=== PATIENT | female | born 1980 | race Caucasian/White ===

== ENCOUNTER 2022-10-26 11:00 | Outpatient (CLI) | payer MEDICAID, SELFPAY ==
[2022-10-26 22:39] LABS: Cholesterol* 156 mg/dL (90-199)
[2022-10-26 22:40] LABS: Glucose* 88 mg/dL (60-115); HDL Cholesterol* 47 mg/dL (>=50); LDL Cholesterol Calculated 94 mg/dL (<100); Triglycerides* 77 mg/dL (40-149)
[2022-10-29 20:43] LABS: Prolactin 4.1 ng/mL (2.8-29.2)
== END 2022-10-26 11:01 | disposition home or self-care (01) ==
PROVIDERS: PCP Physician Assistant Medical; Visit Provider Physician Assistant
DX: Z01.419 Encounter for gynecological examination (general) (routine) without abnormal findings (principal); N92.0 Excessive and frequent menstruation with regular cycle; N94.6 Dysmenorrhea, unspecified; N64.52 Nipple discharge; Z13.6 Encounter for screening for cardiovascular disorders; Z13.1 Encounter for screening for diabetes mellitus
CPT/HCPCS: 80061; 82947; 84146; 84443

== ENCOUNTER 2022-12-03 12:01 | Outpatient (CLI) | payer MEDICAID, SELFPAY ==
--- NOTE | 2022-12-03 12:15 | CRLHL7_ITS ---
For Patients: As a result of the Century Cures Act, medical imaging exams and procedure reports are released immediately into your electronic medical record. You may view this report before your referring provider. If you have questions, please contact your health care provider. INDICATION: Heavy and painful menses. TECHNIQUE: Transabdominal and transvaginal pelvic ultrasound. COMPARISON: March 14, 2019. FINDINGS: The uterus measures 10.7 x 5.0 x 6.2 cm. The endometrial stripe is thickened and heterogeneous measuring 16 mm. There is some increased vascularity within the mid and upper endometrial canal, and therefore polyps or hyperplasia are in the differential. Endometrial carcinoma could not be entirely excluded. Gynecologic evaluation is warranted. Hysterosonography or hysteroscopy may be helpful. No definite myometrial mass. Thickening of the endocervical canal. Cervical nabothian cysts. Normal-sized ovaries containing small follicles. The right ovary measures 2.9 x 2.1 x 2.0 cm. The left ovary measures 3.6 x 2.4 x 2.9 cm. Blood flow is documented in the ovaries. IMPRESSION: 1. Heterogeneous appearance to the endometrial with endometrial thickening measuring up to 16 mm with some increased vascularity. Polyps or hyperplasia are in the differential. Further imaging evaluation possibly with hysterosonography or hysteroscopy may be helpful. Gynecologic evaluation is warranted. 2. Probable endometrial thickening in the region of the endocervical canal. 3. Normal ovaries. Dictated by Truman Toscano MD @ 12/03/2022 3:47:37 PM (Electronically Signed)
== END 2022-12-03 12:02 | disposition home or self-care (01) ==
LOC: US 12:02
PROVIDERS: PCP Physician Assistant Medical; Visit Provider Physician Assistant
DX: N92.0 Excessive and frequent menstruation with regular cycle (principal); R93.89 Abnormal findings on diagnostic imaging of other specified body structures; N94.6 Dysmenorrhea, unspecified
CPT/HCPCS: 76830; 76856

== ENCOUNTER 2023-03-04 09:33 | Day surgery (SDC) | payer MEDICAID, SELFPAY ==
[2023-03-04] VITALS (20 sets, daily range): BP systolic 96–121; BP diastolic 54–89; PULSE 80–97; RESP 10–18; TEMP 36.1–36.9; O2SAT 95–100; BMI 26.5
[2023-03-04] MEDS: LACTATED RINGERS 1000 ML 1,000 ML 100 ML IV ×2 (09:45→13:52)
[2023-03-04 09:52] LABS: Ur HCG Qualitative* Negative (Negative)
[2023-03-04] MEDS: SODIUM CHLORIDE 0.9 % (FLUSH) 10 ML SYRINGE IVF (10:04)
--- NOTE | 2023-03-04 11:36 | W.ANESCHARGE ---
Anesthesia Charges Start Date/Time Anesthesia Start Date: 03/04/23 Anesthesia Start Time: 13:21 Stop Date/Time Anesthesia Stop Date: 03/04/23 Anesthesia Stop Time: 18:47
--- NOTE | 2023-03-04 13:06 | PM.PROC ---
Procedure Note Time Seen by Provider: 17:17 Date Seen: 03/04/23 Date of procedure: 03/04/23 Will [facility] bill your pro fee for this procedure?: Yes Procedure: Preoperative diagnosis: 42-year-old 2 para 1011 Menorrhagia with secondary anemia Dysmenorrhea Postoperative diagnosis: Same Procedure: Total laparoscopic hysterectomy, bilateral salpingectomy, diagnostic cystoscopy. Anesthesia: General endotracheal, local Surgeon: Latoya Jurado MD Poultry Hatchery Manager: Deanne Garcia MD Dictating Machine Mechanic surgeon: Maritza Botello MD Estimated blood loss: 400 mL. IV Fluid: 3,000 mL LR, 1u pRBC's Urine output: 150 mL, clear urine at the end of the procedure Drains: Mulligan to gravity Specimen: Uterus and bilateral fallopian tubes to pathology. Findings: On exam under anesthesia: The uterus was mid position, approximately 9 week size, mobile without nodularity or masses palpable. Uterus sounded to 11 cm. Adnexa without mass or fullness palpable. On laparoscopy: Normal ovaries bilaterally, both with ovulatory cysts. There was noted to be a hematoma in the right retroperitoneal space once the uterus was removed and placed in the vaginal canal to maintain insufflation. On inspection there was noted be a rent in the peritoneum of the roof retroperitoneal space suspicious for an injury that took place at the time infraumbilical trocar placement. General surgery was consulted and the patient's bowel ran to assess for possible small bowel injury. There was noted to be a through-through laceration in the mesentery of the small bowel without bleeding. An intraoperative CBC was ordered stat and hemoglobin returned at 7.8. Preoperative hemoglobin 10.6. This point she was type and crossed for 2 units of packed red blood cells. Coag studies were ordered to be done in the recovery room. Intraoperative platelet count 185K. Appendix and liver appeared normal. Procedure: Jovon was taken to the operating room where general anesthetic was found to be adequate. She was placed in the dorsal lithotomy position and an exam under anesthesia was performed with findings stated above. She was then prepped and draped in a normal sterile manner. A Mulligan catheter was placed. A bivalve speculum was placed in the vaginal canal. A long Allis clamp was placed on the anterior lip of the cervix, in the uterus sounded to 11 cm. An extra-large VCare uterine manipulator was then placed. The Allis clamp and speculum were removed from the cervix. Attention was then turned to performing the laparoscopic portion of the procedure. All incisions were infiltrated with 0.50% Marcaine prior to incising the skin. A vertical, infraumbilical 1 cm incision was made. An 11 mm trocar was then placed under direct visualization. The abdomen was then insufflated with CO2 gas to a pressure of 15 mm of mercury. Two,, pelvic ports were then placed approximately 3-4 finger breaths medial to the ischial crests. The trocar in the RLQ = 5mm, LLQ = 11mm. These were placed under direct visualization. With attempting to place the infraumbilical trocar was noted that the patient's fascia was very scarred from her previous laparoscopic cholecystectomy which required a significant amount of pressure to place the trocar. Inspection of the omentum directly below the trocar noted some small blood clots but no active bleeding. Attention was then turned to performing the hysterectomy. Both ureters were visualized in the normal position bilaterally. The left fallopian tube was grasped and removed with sequential pedicles using the dissecting, PowerSeal blunt tip dissecting forceps. The left side of the hysterectomy was performed using the PowerSeal dissecting forceps. The 1st pedicles were starting with the broad ligament that was cauterized and and bisected. In sequence show pedicles were formed to divide the utero-ovarian ligament. Then sequential pedicles were made through the broad ligament. The posterior leaf of the broad ligament was then divided and sequential pedicles carried down to the level of the VCare cup. The anterior leaf of the broad ligament was then divided down to the level of the anterior aspect of the VCare cup and a bladder flap created. The uterine vessels were then skeletonized. The uterine vessels were then cauterized and divided. Then excess tissue was cleared over the top of the VCare cup using the dissecting forceps. The right salpingectomy and right side of the hysterectomy were then performed in a similar manner. The Ligasure Sky Frequency pen with the spatula attachment was then used to perform the colpotomy incising around the VCare cup. The uterus was removed and the fundus placed in the vaginal canal to maintain insufflation. At this point the right retroperitoneal hematoma was identified it did not appear to be enlarging. There was a small rent within the peritoneum overlying the right retroperitoneal space right of midline. No active bleeding was identified. Two small pieces of Surgicel were placed with in the peritoneal rent. The CO2 gas pressure was decreased to a pressure of 5 mmHg and no increase in bleeding was identified. The vaginal cuff was then reapproximated using 2-0 V lock suture in a running manner. All the pedicles and vaginal cuff were then closely visualized and hemostasis obtained with bipolar cautery using the PowerSeal dissecting forceps or the [employer] Recordslab pen with the spatula. The the uterus was removed from the vaginal canal and sent to pathology. The Mulligan catheter was briefly removed. A diagnostic cystoscopy was performed using normal saline as the insufflation medium. The dome of the bladder was noted to be without injury and no evidence of any sutures from the vaginal cuff causing injury. Normal urine flow was noted through both ureteral orifices. Fluorescein IV was used to visualize the urine more easily. The Mulligan catheter was then replaced. Please see Dr. Botello's operative report regarding her diagnostic laparoscopy to assess the small bowel for possible injury. An additional 5 mm trocar was placed in the patient's left upper quadrant direct visualization for her portion of the procedure. Attention was then returned to the abdomen where hemostasis was verified. The CO2 pressure decreased to 8mmHG and hemostasis verified. The fascia in the LLQ incision was approximated with 0-Vicryl suture using the Ramesh Thomasen fascial closure device. This was closed under direct visualization with the laparoscope. The fascia in the umbilical incision was reapproximated using 0 Vicryl on a UR 6 needle. All trocars were removed under direct visualization. CO2 gas was allowed to escape the infraumbilical port prior to its removal. All skin incisions were re-approximated using 4-0 Monocryl in a running subcuticular manner, Exofin skin adhesive gel and adhesive bandages placed. The patient tolerated this procedure well. Sponge, lap and instrument counts were correct x2 at the end of the procedure. The patient was transported to the radiology department for a CT scan while she was intubated to access for right internal epigastric blood vessel injury or evidence of injury to the right ureter. The patient received 2gm IV ancef prior to the start of the procedure. Anesthesia: GETA and local
[2023-03-04] MEDS: CEFAZOLIN 2 GM INJ IVP (13:40)
--- NOTE | 2023-03-04 13:40 | W.PM.NB ---
Nerve Block Nerve Block Time Seen by Provider: 13:37 Date Seen: 03/04/23 Type of block requested by surgeon for post-operative analgesia: TAP Side: bilateral Time out performed: Yes Verification of patient name: Yes Verification of date of : Yes Site marking: site marked Name of person performing procedure: Peter Continuous monitoring Was continuous monitoring of O2 sat, B/P, monitor car operator, recorded every 15 minutes?: Yes Procedure Checklist: sterile prep, needles and gloves Ultrasound guided. Images saved: Yes Medications given in 5ml increments after negative aspiration: Marcaine %: 0.25 mL: 30 Needle gauge: 20 and Exparel mL: 10 Patient tolerated procedure well: Yes Additional comments: Needle noted adjacent to nerve Block Charges Block Charge (with Pro Fee): TAP Bilateral Use of Ultrasound Machine for Block: Yes- US Guidance/pain block
[2023-03-04] MEDS: BUPIVACAINE 0.5% 30 ML INJECTION (14:00)
--- NOTE | 2023-03-04 15:35 | CRLHL7_ITS ---
For Patients: As a result of the Century Cures Act, medical imaging exams and procedure reports are released immediately into your electronic medical record. You may view this report before your referring provider. If you have questions, please contact your health care provider. INDICATION: Retroperitoneal bleed TECHNIQUE: CT abdomen and pelvis, multiphase, acquired with 80 cc Isovue 370 IV contrast. Permanently recorded images are archived. COMPARISON: None. FINDINGS: Lower chest: Bilateral lower lobe atelectasis versus consolidation. Liver: Unremarkable. Normal in size and attenuation. No suspicious masses. Gallbladder and bile ducts: Status post cholecystectomy. No abnormal biliary ductal dilatation. Pancreas: Unremarkable. No mass or inflammation. Spleen: Mild amount of perisplenic fluid. Normal in size. No masses. Adrenal glands: Unremarkable. No nodules. Kidneys, Ureters, and Bladder: Unremarkable. No suspicious masses, stones, or hydronephrosis. Unremarkable ureters. Decompressed bladder with indwelling urinary catheter. GI tract: Unremarkable. Normal in caliber. No sign of inflammation. The appendix is not visualized. Vasculature: Abdominal aorta is normal in caliber. Mesenteric arteries are patent. No evidence for active extravasation. Lymph nodes: No lymphadenopathy. Retroperitoneum/Peritoneum/Abdominal Wall: There is a small amount of retroperitoneal hemorrhage and air along the right psoas muscle that extends down the right pelvic sidewall. Postsurgical changes of recent hysterectomy with pneumoperitoneum and lower abdominal wall subcutaneous emphysema. Small amount of simple free fluid in the pelvic cul-de-sac. 2.1 cm mass in the right breast, series 4, image 5. Pelvis: Status post hysterectomy. Normal ovaries. Bones: Unremarkable for age. IMPRESSION: Postsurgical changes of recent hysterectomy. Small right-sided retroperitoneal hemorrhage and air extending along the psoas muscle down the right pelvic sidewall. No evidence for active extravasation. Intact ureters without evidence for urinary leak. Please note that all CT scans at this facility use dose modulation, iterative reconstruction, and/or weight-based dosing when appropriate to reduce radiation dose to as low as reasonably achievable. Dictated by Hung Nelson MD @ 03/04/2023 7:03:22 PM (Electronically Signed)
--- NOTE | 2023-03-04 16:15 | SUR.OPER ---
FAMILY NOTIFIED AT 9177
[2023-03-04 16:32] LABS: Red Blood Count 3.16 m/uL (4.00-5.20); White Blood Count* 10.35 K/uL (4.50-11.00)
[2023-03-04 16:33] LABS: Hematocrit 25.7 % (33.0-51.0); Hemoglobin* 7.8 gm/dL (12.0-16.0); Mean Corpuscular HGB Conc 30 gm/dL (32-36); Mean Corpuscular Hemoglobin 25 pg (26-34); Mean Corpuscular Volume 81 fL (80-100); Platelet Count* 185 K/uL (140-440)
[2023-03-04 16:40] LABS: Lymphocytes Percent Auto 8.9 % (20-44); Neutrophils Percent Auto 88.8 % (42.0-72.0)
[2023-03-04 16:41] LABS: Basophils Absolute Auto 0.02 K/uL (0.00-0.30); Basophils Percent Auto 0.2 % (0.0-3.0); Eosinophils Absolute Auto 0.05 K/uL (0.00-0.50); Eosinophils Percent Auto 0.5 % (0.0-7.0); Immature Granulocytes Abs Auto 0.03 K/uL (0.00-0.30); Immature Granulocytes Pct Auto 0.3 %; Lymphocytes Absolute Auto 0.92 K/uL (0.90-2.90); Monocytes Absolute Auto 0.13 K/UL (0.00-0.90); Monocytes Percent Auto 1.3 % (0.0-11.0); Neutrophils Absolute Auto 9.14 K/uL (1.7-7.0); Slide Review Reflex No
--- NOTE | 2023-03-04 17:11 | P.GSOP_ITS ---
Operative Note Date of procedure: 03/04/23 Pre-op diagnosis: Retroperitoneal trocar injury Post-op diagnosis: Same Type of Procedure: Intraoperative consult Exploratory laparoscopy with evaluation of the small bowel. Indications: The patient is a 42-year-old female who was undergoing hysterectomy and bilateral salpingo oophorectomy. During positioning of the patient it was noted that there was a laceration to the retroperitoneum on the right side. This was felt to be secondary to Visiport placement at the umbilicus. The procedure continued without incident though the patient was noted to be on a small amount of pressor during the case but was not tachycardic. The patient was anemic at baseline with a hemoglobin of 10. A repeat hemoglobin was noted to be 7.8. I was asked to evaluate for vascular other injury. Procedure Description: I arrived to the OR after tobacco primer machine operator had finished the hysterectomy and oophorectomy. The laceration to the retroperitoneum was to the right of midline below the umbilical incision. There was blood staining in the retroperitoneum extending down into the pelvis however there was not a large hematoma. I was able to see the distal ureter through the peritoneum. Within the laceration is self I was unable to identify any structures. There was a small clot laterally. There was minimal ongoing bleeding from this area. Surgicel was placed. I then ran the small bowel from the ileocecal valve to the ligament Treitz. There was a through and through hole of the small bowel mesentery noted in the mid small bowel. I then ran the small bowel laparoscopically again back to the ileocecal valve. No bowel injury was noted. There was no succus in the abdomen. Because there did not appear to be an expanding hematoma and because this appeared to have been stable for the duration of the case, we formulated a plan to instead of an open retroperitoneal exploration, we would take the patient from the OR to the CT scanner for a triple phase CT scan evaluating for arterial, venous or ureteral injury. The patient remained stable through this time. 1 unit of blood had been transfused and she was no longer on pressors. I turned the case back over to OBGYN who closed the incisions. I remained with the patient as she was transported to the CT scanner. I then discussed her imaging with Radiology. The laceration of the retroperitoneum was near the right ureter and iliac vein, however there was no extravasation of contrast from any of the structures. There was no large retroperitoneal hematoma. The patient was then extubated. The patient was then woken and transported to the recovery area in stable condition. ? The patient tolerated the procedure well. Findings: Through and through mesenteric laceration of the mid small bowel. Retroperitoneal laceration without evidence of major vascular or ureteral injury Anesthesia: GETA Surgeon: Maritza Botello MD Condition: stable Disposition: PACU
--- NOTE | 2023-03-04 17:28 | SUR.OPER ---
BLOOD TRANSFUSION 1 UNIT INITIATED POSTOP PER ANESTHESIA. DOCUMENTATION ON ANESTHESIA RECORD
--- NOTE | 2023-03-04 18:12 | SUR.OPER ---
PATIENT CAME BACK TO OR 2 AT 1755 STILL INTUBATED. AWAITING SCAN RESULTS PRIOR TO EXTUBATION. PATIENT EXTUBATED AT 1840
--- NOTE | 2023-03-04 18:42 | SUR.OPER ---
PATIENT LEFT OR 1841
[2023-03-04] MEDS: MEPERIDINE 25 MG/ML INJ 12.5 MG IVP (19:02)
--- NOTE | 2023-03-04 19:05 | W.ANESCHARGE ---
Anesthesia Charges Start Date/Time Anesthesia Start Date: 03/04/23 Anesthesia Start Time: 13:21 Stop Date/Time Anesthesia Stop Date: 03/04/23 Anesthesia Stop Time: 18:47
[2023-03-04] MEDS: ONDANSETRON 2 MG/ML inj 4 MG IVP (19:13)
[2023-03-04] MEDS: PROMETHAZINE 25 MG/ML INJ 12.5 MG IV (20:10)
[2023-03-04 20:46] LABS: INR 1.09 (0.91-1.10); Prothrombin Time 14.7 Seconds
[2023-03-04 20:47] LABS: Partial Thromboplastin Time* 25 Seconds (23-33)
[2023-03-04] MEDS: KETOROLAC 30 MG/ML inj IVP (21:34)
--- NOTE | 2023-03-04 21:45 | PC.NURSE ---
Patient had hemoglobin drawn at 2024, result per lab is 10.3. Another timed CBC was ordered for 2199. Spoke with Dr. Tubbs about need to repeat this at this time, to repeat labs in AM as ordered.
[2023-03-04 21:54] LABS: Hematocrit 33.5 % (33.0-51.0); Hemoglobin* 10.3 gm/dL (12.0-16.0); Mean Corpuscular HGB Conc 31 gm/dL (32-36); Mean Corpuscular Hemoglobin 25 pg (26-34); Mean Corpuscular Volume 82 fL (80-100); Platelet Count* 194 K/uL (140-440); Red Blood Count 4.08 m/uL (4.00-5.20); White Blood Count* 12.54 K/uL (4.50-11.00)
[2023-03-04 21:55] LABS: Basophils Percent Auto 0.2 % (0.0-3.0); Immature Granulocytes Pct Auto 0.3 %; Lymphocytes Percent Auto 3.8 % (20-44); Monocytes Percent Auto 2.3 % (0.0-11.0); Neutrophils Percent Auto 93.4 % (42.0-72.0); RDW Coefficient of Variation % 14.9 % (11.5-15.5)
[2023-03-04 21:56] LABS: Slide Review Reflex No
[2023-03-04 23:02] LABS: Fibrinogen* 275 mg/dL (200-450)
--- NOTE | 2023-03-04 23:08 | PC.NURSE ---
Shift [id number]- Patient arrives from PACU at approximately 1945. Family greets her at bedside upon arrival, leave shortly after. She remains somewhat sleepy. She asks throughout evening when she can use toilet and is reminded castaneda is in place and draining. She attempts to use bedpan as she feels as though she has to defecate, though is not successful. She is tolerating ice chips, small amount of water and jello thus far. She also complains of nausea soon after arrival from PACU, PRN administered with relief. Lap sites intact without drainage. Pain appears well-controlled.
[2023-03-05] MEDS: LACTATED RINGERS 1000 ML 1,000 ML 125 ML IV
[2023-03-05 01:00] VITALS: BP 96/53; PULSE 85; RESP 16; TEMP 36.9; O2SAT 97
[2023-03-05] MEDS: ACETAMINOPHEN 500 MG TABLET 1000 MG PO ×3 (01:19→14:24)
[2023-03-05 02:00] VITALS: BP 103/64; PULSE 88; RESP 14; TEMP 36.7; O2SAT 94
[2023-03-05 03:00] VITALS: BP 107/64; PULSE 89; RESP 16; TEMP 36.9; O2SAT 93
[2023-03-05] MEDS: KETOROLAC 30 MG/ML inj IVP (04:09)
[2023-03-05 05:37] LABS: Basophils Absolute Auto 0.01 K/uL (0.00-0.30); Basophils Percent Auto 0.1 % (0.0-3.0); Hematocrit 29.6 % (33.0-51.0); Hemoglobin* 9.3 gm/dL (12.0-16.0); Immature Granulocytes Abs Auto 0.02 K/uL (0.00-0.30); Immature Granulocytes Pct Auto 0.2 %; Lymphocytes Percent Auto 8.6 % (20-44); Mean Corpuscular HGB Conc 31 gm/dL (32-36); Mean Corpuscular Hemoglobin 26 pg (26-34); Mean Corpuscular Volume 82 fL (80-100); Monocytes Percent Auto 4.5 % (0.0-11.0); Neutrophils Percent Auto 86.6 % (42.0-72.0); Platelet Count* 201 K/uL (140-440); Red Blood Count 3.63 m/uL (4.00-5.20); White Blood Count* 10.97 K/uL (4.50-11.00)
[2023-03-05 05:49] LABS: Slide Review Reflex No
[2023-03-05 06:03] LABS: Prothrombin Time 15.8 Seconds
[2023-03-05 06:04] LABS: INR 1.19 (0.91-1.10)
[2023-03-05 06:05] LABS: Fibrinogen* 276 mg/dL (200-450)
[2023-03-05 07:32] VITALS: BP 115/70; PULSE 88; RESP 14; TEMP 37.1; O2SAT 93
[2023-03-05] MEDS: OXYCODONE 5 MG TABLET PO ×2 (07:44→14:24)
--- NOTE | 2023-03-05 08:46 | PM.GYNPNPO ---
REGIONAL MERCHANDISING MANAGER - A/P Postoperative Procedures: Procedures Operation Date: 03/04/23 11:40 Actual Procedure Side Surgeon p Total Laparoscopic Hysterectomy, Bilateral Salpingectomy, Diagnostic Cystoscopy, DIAGNOSTIC LAPAROSCOPY Latoya Jurado MD Time Spent With Patient Time: Total time spent is greater than 50% in coordination of care (as documented) at patient's floor/unit and/or counseling patient: Time with patient: 25 - 35 minutes REGIONAL MERCHANDISING MANAGER- PN:Subj Post-Op Subjective Time Seen by Provider: 08:05 Date Seen: 03/05/23 Post Operative Details: Subjective: Jovon is a 42-year-old 2 para 1011 who is postop day 1 from a total laparoscopic hysterectomy, bilateral salpingectomy, diagnostic cystoscopy and general surgery operative laparoscopy with evaluation of the bowel secondary to a trocar injury for menorrhagia with secondary anemia. She is doing well today. She states her pain is moderately well controlled. She states that she has more discomfort on her left side of her abdomen especially when she moves. She had some shoulder pain earlier in the morning but that has resolved.. She is tolerating regular diet. She denies nausea/vomiting. Her Mulligan catheter remains in place and I ordered that to be removed. Has had adequate urine output. She has not been ambulating. She is passing flatus. I will be checking on her at lunch time to see how she is feeling and suspect she will feel well enough to be discharged later this afternoon or early evening. Reviewed the incidental trocar injury found during surgery. Conceived 1 unit of packed red blood cells in the operating room due to a hemoglobin drop of 10.6-7.8 intraoperatively. I suspect this may have been a falsely low hemoglobin because 5 hours after transfusion her hemoglobin was 10.3 and this morning hemoglobin was 9.3 this is a much higher bumps and I would of expected for 1 unit of packed red blood cells. Her INR was slightly elevated this morning at 1.19 but she has no evidence of current bleeding. Her platelets were normal. Objective: General: Pleasant, , well groomed woman in no acute distress. Vital signs: Per electronic medical record Heart: Regular rate and rhythm without gallop, rub or murmur. Chest: Clear to auscultation bilaterally. Abdomen: Soft, mildly tender throughout, mild to moderate distension. No CVA or flank tenderness. Incisions: All clean, dry and intact with suture and skin adhesive. Extremities: No pain or edema Assessment: 42-year-old postoperative day# 1 total laparoscopic hysterectomy, bilateral salpingectomy, diagnostic cystoscopy, exploratory laparotomy with evaluation of the bowel by General surgery. Plan: 1. Continue routine postop care. 2. Likely discharge home later today. REGIONAL MERCHANDISING MANAGER-PN: Obj Exam Physical Exam: Vital signs: Temp Pulse Resp BP Pulse Ox O2 Del Method 98.7 F 88 14 115/70 93 Room Air 03/05/23 07:32 03/05/23 07:32 03/05/23 07:32 03/05/23 07:32 03/05/23 07:32 03/05/23 07:32 Urinary Catheter Management: Urethral: Cath placed during this visit: yes Urethral indwelling: Yes Reason for continuing: surgical procedure Insertion date: 03/04/23 Insertion time: 13:55 REGIONAL MERCHANDISING MANAGER - PN: Obj Data Labs Labs: Laboratory Results - last 24 hr 03/04/23 03/04/23 03/04/23 09:35 10:32 15:28 WBC RBC Hgb 10.0 L Hct MCV MCH MCHC RDW Coeff of Yonas Plt Count Neut % (Auto) Lymph % (Auto) Bryan % (Auto) Eos % (Auto) Baso % (Auto) Neut # (Auto) Lymph # (Auto) Bryan # (Auto) Eos # (Auto) Baso # (Auto) INR APTT Fibrinogen Urine HCG, Qual Negative Blood Type A Positive A Positive Antibody Screen NEGATIVE NEGATIVE Crossmatch (AHG) See Detail 03/04/23 03/04/23 03/05/23 15:52 20:25 05:20 WBC 10.35 12.54 H 10.97 RBC 3.16 L 4.08 3.63 L Hgb 7.8 L* 10.3 L 9.3 L Hct 25.7 L 33.5 29.6 L MCV 81 82 82 MCH 25 L 25 L 26 MCHC 30 L 31 L 31 L RDW Coeff of Yonas 15.0 14.9 15.0 Plt Count 185 194 201 Neut % (Auto) 88.8 H 93.4 H 86.6 H Lymph % (Auto) 8.9 L 3.8 L 8.6 L Bryan % (Auto) 1.3 2.3 4.5 Eos % (Auto) 0.5 0.0 0.0 Baso % (Auto) 0.2 0.2 0.1 Neut # (Auto) 9.14 H 11.70 H 9.50 H Lymph # (Auto) 0.92 0.50 L 0.90 Bryan # (Auto) 0.13 0.30 0.50 Eos # (Auto) 0.05 0.00 0.00 Baso # (Auto) 0.02 0.00 0.01 INR 1.09 1.19 H APTT 25 Fibrinogen 275 276 Urine HCG, Qual Blood Type Antibody Screen Crossmatch (G)
[2023-03-05] MEDS: IBUPROFEN 600 MG TABLET PO (10:24)
[2023-03-05 11:10] VITALS: BP 110/58; PULSE 85; RESP 16; TEMP 37.1; O2SAT 94
--- NOTE | 2023-03-05 13:06 | P.DS_ITS ---
DS: Providers Provider Time Seen by Provider: 13:06 Date Seen: 03/05/23 Date of admission: 03/04/2023 Primary care physician: Calixto Young PA-C Admitting Clinician: Latoya Jurado MD Consults: General surgery: Maritza Botello MD Attending Physician on discharge: Latoya Jurado MD Date of Discharge: 03/05/23 DS: Diagnosis Discharge Diagnosis (1) Traumatic retroperitoneal hematoma: Status: Acute (2) Transfusion of blood during current hospitalization: Status: Acute (3) Anemia due to acute blood loss: Status: Acute (4) Status post laparoscopic hysterectomy: Status: Acute Problem details: w/ Bilateral salpingectomy, diagnostic cystoscopy. [employer] DRIVER-Discharge Summary Hospital Course Hospital Course Narrative: Hospital Course: Jovon was admitted to the hospital on 03/04/2023 for a scheduled total laparoscopic hysterectomy, bilateral salpingectomy, diagnostic cystoscopy. Her surgery was complicated by a no peritoneal and small bowel mesentery trocar injury. Her postoperative course was also uncomplicated. By postoperative day 1, she was tolerating a regular diet, ambulating without difficulty, passing flatus and pain was well controlled with oral pain medications. She would like to be discharged home today. Labs: Preoperative hemoglobin 10.6, postoperative hemoglobin 9.3 after 1 unit packed red blood cells. Objective: General: Alert and oriented x3. Pleasant, woman in no acute distress. Vital signs: See EMR. Heart: Regular rate and rhythm without gallop, rub or murmur. Chest: Clear to auscultation bilaterally. Abdomen: Soft, nontender, nondistended with normal bowel sounds throughout. No CVA or flank tenderness. Incision(s): Clean, dry and intact w/ sutures and skin adhesive. Pelvic: Minimal vaginal bleeding, remainder of pelvic exam deferred. Extremities: No pain, edema, cyanosis or clubbing. Assessment: 42-year-old postoperative day 1 from a total laparoscopic hysterectomy, bilateral salpingectomy, diagnostic cystoscopy and exploratory laparotomy with running the small bowel doing well. Plan: 1. Discharge home today. 2. Activity restrictions reviewed with the patient. 3. Return to clinic to see Dr. Jurado for a postoperative visit in 2-3 weeks. 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 Pleasant, , well groomed woman in no acute distress. Vital signs: Per electronic medical record Heart: Regular rate and rhythm without gallop, rub or murmur. Chest: Clear to auscultation bilaterally. Abdomen:? Soft, mildly tender throughout, mild to moderate distension.? No CVA or flank tenderness. Incisions:? All clean, dry and intact with suture and skin adhesive. Extremities:? 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 - DS: Data Data Completed and Pending Labs on day of discharge: Labs from last 24 hours 03/05/23 03/04/23 03/04/23 05:20 20:25 15:52 WBC 10.97 12.54 H 10.35 RBC 3.63 L 4.08 3.16 L Hgb 9.3 L 10.3 L 7.8 L* Hct 29.6 L 33.5 25.7 L MCV 82 82 81 MCH 26 25 L 25 L MCHC 31 L 31 L 30 L RDW Coeff of Yonas 15.0 14.9 15.0 Plt Count 201 194 185 Neut % (Auto) 86.6 H 93.4 H 88.8 H Lymph % (Auto) 8.6 L 3.8 L 8.9 L [place] % (Auto) 4.5 2.3 1.3 Eos % (Auto) 0.0 0.0 0.5 Baso % (Auto) 0.1 0.2 0.2 Neut # (Auto) 9.50 H 11.70 H 9.14 H Lymph # (Auto) 0.90 0.50 L 0.92 [place] # (Auto) 0.50 0.30 0.13 Eos # (Auto) 0.00 0.00 0.05 Baso # (Auto) 0.01 0.00 0.02 INR 1.19 H 1.09 APTT 25 Fibrinogen 276 275 Blood Type Antibody Screen Crossmatch (AHG) 03/04/23 15:28 WBC RBC Hgb Hct MCV MCH MCHC RDW Coeff of Yonas Plt Count Neut % (Auto) Lymph % (Auto) [place] % (Auto) Eos % (Auto) Baso % (Auto) Neut # (Auto) Lymph # (Auto) [place] # (Auto) Eos # (Auto) Baso # (Auto) INR APTT Fibrinogen Blood Type A Positive Antibody Screen NEGATIVE Crossmatch (AHG) See Detail Procedures Procedures: Procedures Operation Date: 03/04/23 11:40 Actual Procedure Side Surgeon p Total Laparoscopic Hysterectomy, Bilateral Salpingectomy, Diagnostic Cystoscopy, DIAGNOSTIC LAPAROSCOPY Latoya Jurado MD Discharge Plan Discharge Disposition: Home, Self-Care Discharging Surgeon: Latoya Jurado Follow-Up Appointment: 2-3 weeks and 2nd visit in 5.5 weeks Prescriptions: New docusate sodium 100 mg Capsule 100 mg PO BID PRN (Reason: Constipation) Qty: 100 0RF ibuprofen 600 mg Tablet 600 mg PO Q6H Qty: 30 0RF oxycodone 5 mg Tablet 5 mg PO 3XD PRN (Reason: Moderate Pain) Qty: 21 0RF ferrous sulfate [iron] 325 mg (65 mg iron) tablet 325 mg PO Q OTHER DAY Qty: 100 0RF Rx Instructions: Take with food Continued metronidazole [MetroCream] 0.75 % cream 1 applic topical BID Qty: 45 3RF sodium fluoride-pot nitrate [PreviDent 5000 Sensitive] 1.1-5 % paste dental Patient Comments: USE THIS TOOTHPASTE IN PLACE OF REGULAR BEDTIME BRUSHING. SWISH WITH REMAINING FOAM X30 SECONDS. SPIT EXCESS. NO EATING/DRINKING/RINSING X 30 MINS loratadine 10 mg tablet 10 mg PO QDAY Discontinued peg 3350-electrolytes [Golytely] 236-22.74-6.74 -5.86 gram recon soln 240 ml PO Q10M Qty: 4000 0RF Rx Instructions: until fecal effluent is clear Activity Detail: ACTIVITY RESTRICTIONS: ? Nothing vaginally for 6 weeks: no tampons/intercourse ? No driving while taking narcotic pain medication during the day. 1-2 weeks. Okay to be the passenger anytime. ? Lifting restriction: Maximum of 20 pounds for 2 weeks. ? High impact or core exercises: 6 weeks. ? Submerge the incision in water (bath/pool/salas): 2 weeks. ? Off of work/school for a minimum of 3 weeks NO RESTRICTIONS for: ? Walking ? Going up/down stairs ? Showering Symptoms to report to doctor: -Bleeding that saturates more than one pad per hour ?-Passing clots larger than the size of a golf ball ?-Pain not relieved by prescribed medication ?-Fever above 100.4 degrees Fahrenheit ?-A foul vaginal odor ?-Any drainage, redness or tenderness in your IV/epidural site ?-Decrease in urination or painful, frequent urinating ?-Chest pain ?-Shortness of breath ?-Tenderness or pain with redness and/swelling in the calf(s) of your leg Follow-up appointment: 1. 1st postop visit in approximately 2 weeks. 2. A 5.5week postop visit to verify that the vaginal cuff is healed. Discharge Diet: Regular Patient Instructions: Surgical Site Infections (DC), Laparoscopic Hysterectomy (DC) Forms: Work/School Release Follow-up: Latoya Jurado MD [Staff Physician] - Calixto Young PA-C [Primary Care Provider] - Discharge Orders: Discharge Order (Routine); Ordered 03/05/23 Ordered By: Latoya Jurado
--- NOTE | 2023-03-05 14:56 | PC.NURSE ---
Discharge: Patient pleasant and cooperative. Patient vitally stable, lungs clear, BS WNL, IV's removed, catheters intact. Patient rated pain at most 3-4/10. Patient given tylenol x2 and oxy 5 mg x2, then scheduled Ibuprofen. Patient using abdominal binder and feels relief with it. Patient independent in room. Patient tolerating regular diet, denies nausea. Abdominal lap sites x4 C/D/I. Patient urinated a total of 100ml after castaneda removal. Patient signed belongings sheet and discharge form. Patient had no further questions regarding discharge. Patient left the floor by wheelchair to home at 1452.
== END 2023-03-05 14:52 | disposition home or self-care (01) ==
LOC: OR 09:33 → MEDSURG 09:36
PROVIDERS: Surgery; PCP Physician Assistant Medical; Visit Provider Obstetrics & Gynecology
PROC: 0UT94ZZ Resection of Uterus, Percutaneous Endoscopic Approach (ICD-10-PCS; CPT 58571; principal; 2023-03-04 11:30)
PROC: (CPT 49320; 2023-03-04 11:30)
DX: N94.6 Dysmenorrhea, unspecified (principal); N92.0 Excessive and frequent menstruation with regular cycle; D25.9 Leiomyoma of uterus, unspecified; N83.8 Other noninflammatory disorders of ovary, fallopian tube and broad ligament; N99.71 Accidental puncture and laceration of a genitourinary system organ or structure during a genitourinary system procedure; K91.72 Accidental puncture and laceration of a digestive system organ or structure during other procedure; D62 Acute posthemorrhagic anemia; G89.18 Other acute postprocedural pain
CPT/HCPCS: 58571; 49329; 00840; 36415; 64488; 74178; 76942; 81025; 85018; 85025; 85384; 85610; 85730; 86850; 86900; 86901; 86922; 88307; A9270; C9290; J0171; J0330; J0690; J1100; J1885; J2175; J2250; J2370; J2405; J2550; J2704; J3010; J3490; J7120; P9016; Q9967

== ENCOUNTER 2023-03-17 10:07 | Outpatient (CLI) | payer MEDICAID, SELFPAY | END 2023-03-17 10:08 | disposition home or self-care (01) | LOC: NFLDREF 03-18 07:48 | PROVIDERS: PCP Physician Assistant Medical; Referring Provider Physician Assistant Medical; Visit Provider Obstetrics & Gynecology | DX: D62 Acute posthemorrhagic anemia (principal); R35.0 Frequency of micturition; Z48.89 Encounter for other specified surgical aftercare | CPT/HCPCS: 87086 ==

== ENCOUNTER 2024-08-24 09:54 | Outpatient (CLI) | payer MEDICAID, SELFPAY ==
--- NOTE | 2024-08-24 10:15 | CRLHL7_ITS ---
For Patients: As a result of the Century Cures Act, medical imaging exams and procedure reports are released immediately into your electronic medical record. You may view this report before your referring provider. If you have questions, please contact your health care provider. BILATERAL DIGITAL SCREENING MAMMOGRAM WITH COMPUTER-AIDED DETECTION AND TOMOSYNTHESIS CLINICAL HISTORY: Routine screening exam. COMPARISON: None. TECHNIQUE: Digital mammogram in CC and MLO projections including computer-aided detection (CAD). Tomosynthesis was used in this interpretation. BREAST COMPOSITION: The breasts are heterogeneously dense, which may obscure small masses. FINDINGS: RIGHT Breast: Lobular mass is present within the lower inner quadrant 4 cm from the nipple. LEFT Breast: No suspicious findings. IMPRESSION: RIGHT breast asymmetry/mass. RECOMMENDATIONS: Additional mammographic views of the RIGHT breast including 3D spot compression CC/MLO. RIGHT breast ultrasound may also be required. The [facility] will contact the patient. A lay language report of this examination will be provided to the patient. BI-RADS Category 0: Incomplete: Need Additional Imaging Evaluation Dictated by Rene Hebert MD @ 08/24/2024 11:06:09 AM jj/Dictated by: Rene Hebert MD @ 08/24/2024 11:06:00 AM (Electronically Signed)
== END 2024-08-24 09:55 | disposition home or self-care (01) ==
LOC: MAMMO 09:55
PROVIDERS: PCP Physician Assistant Medical; Visit Provider Physician Assistant Medical
DX: Z12.31 Encounter for screening mammogram for malignant neoplasm of breast (principal); N63.10 Unspecified lump in the right breast, unspecified quadrant; R92.333 Mammographic heterogeneous density, bilateral breasts
CPT/HCPCS: 77063; 77067

== ENCOUNTER 2024-09-05 10:34 | Outpatient (CLI) | payer MEDICAID, SELFPAY ==
--- NOTE | 2024-09-05 10:45 | CRLHL7_ITS ---
For Patients: As a result of the Century Cures Act, medical imaging exams and procedure reports are released immediately into your electronic medical record. You may view this report before your referring provider. If you have questions, please contact your health care provider. RIGHT DIAGNOSTIC MAMMOGRAM WITH COMPUTER-AIDED DETECTION AND TOMOSYNTHESIS RIGHT BREAST ULTRASOUND CLINICAL HISTORY: RIGHT breast mass/asymmetry. COMPARISON: 08/24/2024. TECHNIQUE: Digital RIGHT mammogram in two projections. Compter-aided detection and tomosynthesis were used in this interpretation. Real-time ultrasound imaging of RIGHT breast with imaging documentation. BREAST COMPOSITION: The breasts are heterogeneously dense, which may obscure small masses. FINDINGS: 3D spot compression CC/MLO RIGHT breast mammogram images submitted. Lobular nodule is present within the medial breast without architectural distortion. Benign calcifications are present. Targeted RIGHT breast ultrasound performed at 2 o`clock, 3 cm from the nipple. In this location, there is a mostly solid circumscribed macrolobular solid mass measuring 1.6 x 1.4 x 1.9 cm. Mild increased through transmission appears to be present. Normal axilla without adenopathy. IMPRESSION: Indeterminate mostly solid nodule RIGHT breast 2 o`clock, 3 cm from the nipple, measuring 1.6 x 1.4 x 1.9 cm. RECOMMENDATIONS: Ultrasound-guided core needle biopsy. A lay language report of this examination will be provided to the patient. BI-RADS Category 4: Suspicious Dictated by Rene Hebert MD @ 09/05/2024 11:32:46 AM /sp SP/Dictated by: Rene Hebert MD @ 09/05/2024 11:32:00 AM (Electronically Signed)
--- NOTE | 2024-09-05 11:15 | CRLHL7_ITS ---
For Patients: As a result of the Century Cures Act, medical imaging exams and procedure reports are released immediately into your electronic medical record. You may view this report before your referring provider. If you have questions, please contact your health care provider. PLEASE SEE RIGHT BREAST DIAGNOSTIC MAMMOGRAM PERFORMED SAME DAY. CRL:sp SP/Dictated by: Rene Hebert MD @ 09/05/2024 11:32:00 AM (Electronically Signed)
== END 2024-09-05 10:35 | disposition home or self-care (01) ==
LOC: MAMMO 10:34
PROVIDERS: PCP Physician Assistant Medical; Visit Provider Physician Assistant Medical
DX: N63.10 Unspecified lump in the right breast, unspecified quadrant (principal); R92.333 Mammographic heterogeneous density, bilateral breasts; R92.8 Other abnormal and inconclusive findings on diagnostic imaging of breast
CPT/HCPCS: 76642; 77065; G0279

== ENCOUNTER 2024-09-15 09:50 | Outpatient (CLI) | payer MEDICAID, SELFPAY ==
--- NOTE | 2024-09-15 10:15 | CRLHL7_ITS ---
For Patients: As a result of the Century Cures Act, medical imaging exams and procedure reports are released immediately into your electronic medical record. You may view this report before your referring provider. If you have questions, please contact your health care provider. ULTRASOUND-GUIDED BREAST BIOPSY AND POST-BIOPSY DIGITAL MAMMOGRAM FOR BIOPSY MARKER PLACEMENT CLINICAL HISTORY: Indeterminate mass. COMPARISON STUDIES: 09/05/2024. TECHNIQUE: Real-time ultrasound with image documentation was used for targeting the breast lesion. Core biopsy specimens were obtained using an automated gun with a 16-gauge biopsy needle. Post-biopsy CC and ML digital mammograms were obtained to document position of the biopsy marker. CONSENT and TIME OUT: The procedure, risks, and alternatives were explained to the patient and a consent was signed. [place] Protocol was followed including pre-procedure verification that relevant information/documentation was available, reviewed and properly matched to the patient; consent accurate and complete; and equipment and supplies available. Time Out was conducted just prior to starting procedure to verify the four required elements: patient identity, correct side/site marked (if applicable), procedure, relevant images/results properly labeled and displayed (if applicable). PROCEDURE: The patient was positioned supine on the ultrasound table. The breast was prepped with ChloraPrep. 8 cc of 1 percent lidocaine used for local anesthesia. Core samples were obtained. A sterile metal biopsy clip was placed percutaneously to tootie the lesion position within the breast. The specimens were placed in 10% formalin and sent to the pathology department. Pressure was held on the biopsy site until all bleeding subsided. The skin incision was closed with Steri-Strips. An ice pack was positioned over the biopsy site. Post-biopsy instructions were reviewed with the patient, and a written copy was given to her. LATERALITY: RIGHT breast. LESION: Solid circumscribed nodule measures 16 x 14 x 19 millimeters at 2 o`clock 3 cm from the nipple. SUSPICION FOR MALIGNANCY: Intermediate. NUMBER OF SAMPLES: 5. BIOPSY CLIP SHAPE: HydroMARK. PROXIMITY OF CLIP TO TARGET: Within the lesion. IMPRESSION: Ultrasound-guided breast biopsy. When the pathology report is available, an addendum to this report will be made. ACR not applicable Dictated by Rene Hebert MD @ 09/15/2024 11:42:22 AM jj/Dictated by: Rene Hebert MD @ 09/15/2024 11:42:00 AM (Electronically Signed)
--- NOTE | 2024-09-15 11:00 | CRLHL7_ITS ---
For Patients: As a result of the Century Cures Act, medical imaging exams and procedure reports are released immediately into your electronic medical record. You may view this report before your referring provider. If you have questions, please contact your health care provider. SEE ULTRASOUND-GUIDED RIGHT BREAST BIOPSY PERFORMED SAME DAY CRL:brittani peter/Dictated by: Rene Hebert MD @ 09/15/2024 11:42:00 AM (Electronically Signed)
== END 2024-09-15 09:51 | disposition home or self-care (01) ==
LOC: US 09:50
PROVIDERS: PCP Physician Assistant Medical; Visit Provider Physician Assistant Medical
DX: N63.10 Unspecified lump in the right breast, unspecified quadrant (principal); D24.1 Benign neoplasm of right breast; R92.8 Other abnormal and inconclusive findings on diagnostic imaging of breast
CPT/HCPCS: 19083; 77065; 88305; A4648; A4649

== ENCOUNTER 2024-11-14 10:16 | Outpatient (CLI) | payer MEDICAID, SELFPAY | END 2024-11-14 10:17 | disposition home or self-care (01) | PROVIDERS: PCP Physician Assistant Medical; Visit Provider Physician Assistant Medical | DX: Z13.228 Encounter for screening for other metabolic disorders (principal); Z13.220 Encounter for screening for lipoid disorders; Z13.29 Encounter for screening for other suspected endocrine disorder | CPT/HCPCS: 80053; 80061; 84443 ==